=== PATIENT | female | born 1940 | race Caucasian/White ===

== ENCOUNTER → 2019-05-28 15:07 | Outpatient (BNVA) | payer MEDICARE, OTHER, SELFPAY | PROVIDERS: Family Provider Family Medicine; PCP Urology; Visit Provider Urology | DX: N30.20 Other chronic cystitis without hematuria (principal) | CPT/HCPCS: 87077; 87086; 87186 ==

== ENCOUNTER → 2019-12-05 12:47 | Outpatient (BNVA) | payer MEDICARE, OTHER, SELFPAY | PROVIDERS: Family Provider Family Medicine; PCP Family Medicine; Visit Provider Urology | DX: N30.20 Other chronic cystitis without hematuria (principal); N39.46 Mixed incontinence | CPT/HCPCS: 81001 ==

== ENCOUNTER 2020-02-19 13:05 | Outpatient (CLI) | payer MEDICARE, OTHER, SELFPAY ==
--- NOTE | 2020-02-19 13:30 | USCV_ITS ---
Head, Vale Age: 79 Gender: F : 1940 Exam Date: 02/19/2020 13:30 Ordering Phys: Anam You M.D ([email or web address]) Technologist: Elijah Quiñonez Exam Location: [facility] [place] Indication: MURMUR BP: 130 / 72 HR: 52 Rhythm: Sinus Technical Quality: Adequate MEASUREMENTS (Male / Female) Normal Values 2D ECHO LV Diastolic Diameter PLAX 4.6 cm 4.2 - 5.9 / 3.9 - 5.3 cm LV Systolic Diameter PLAX 2.9 cm IVS Diastolic Thickness 0.9 cm 0.6 - 1.0 / 0.6 - 0.9 cm IVS Systolic Thickness 1.4 cm LVPW Diastolic Thickness 1.3 cm 0.6 - 1.0 / 0.6 - 0.9 cm LVPW Systolic Thickness 1.5 cm LVOT Diameter 2.0 cm LV Ejection Fraction 2D Teich 67.2 % LV Ejection Fraction MOD 2C 71.6 % LV Ejection Fraction 2C AL 72.3 % LA Diameter 4.3 cm LA Width 5.3 cm LA Height 6.6 cm RA Width 3.7 cm RA Height 5.5 cm Aorta at Sinotubular Diameter 1.1 cm M-MODE LV Diastolic Diameter MM 5.3 cm 4.2 - 5.9 / 3.9 - 5.3 cm LV Systolic Diameter MM 3.7 cm LV Ejection Fraction MM Teich 57.6 % IVS Diastolic Thickness MM 1.0 cm 0.6 - 1.0 / 0.6 - 0.9 cm IVS Systolic Thickness MM 1.4 cm LVPW Diastolic Thickness MM 1.4 cm 0.6 - 1.0 / 0.6 - 0.9 cm LVPW Systolic Thickness MM 2.1 cm RV Diastolic Diameter MM 1.5 cm Aortic Annulus Diameter 3.3 cm LA Ao Ratio MM 1.4 MV E Point Septal Separation 0.6 cm DOPPLER AV Peak Velocity 156.3 cm/s LVOT Peak Velocity 111.0 cm/s AV Area Cont Eq vti 2.2 cm squared AV Area Cont Eq pk 2.3 cm squared MV Area PHT 5.0 cm squared Mitral E to A Ratio 1.5 MV E' Velocity 44.5 cm/s Mitral E to MV E' Ratio 9.8 Mitral E to LV E' Lateral Ratio 8.6 Mitral E to LV E' Septal Ratio 11.6 TR Peak Velocity 260.8 cm/s TR Peak Gradient 27.2 mmHg TV Peak E Velocity 73.0 cm/s Right Atrial Pressure 3.0 mmHg Pulmonary Artery Systolic Pressu 30.2 mmHg PV Peak Velocity 92.0 cm/s FINDINGS Left Ventricle Normal left ventricular size, systolic function and wall thickness, with no regional wall motion abnormalities. LVEF is 60 to 65%. Normal left ventricular wall thickness. Normal diastolic filling pattern. Right Ventricle The right ventricle is normal in size and function. Right Atrium The right atrium is normal in size. Left Atrium The left atrium is moderately enlarged. Mitral Valve Structurally normal mitral valve without significant stenosis or prolapse. There is mild to moderate mitral regurgitation. Aortic Valve Structurally normal aortic valve without significant sclerosis or stenosis. There is mild to moderate aortic regurgitation. Tricuspid Valve Structurally normal tricuspid valve without significant stenosis. There is mild tricuspid regurgitation. RVSP is 25 to 30 mmHg. Pulmonic Valve Structurally normal pulmonic valve without significant stenosis. There is trace pulmonic regurgitation. Pericardium Normal pericardium without effusion. Aorta Normal ascending aorta dimension. CONCLUSIONS Folic function is normal with EF of 60 to 65%. Diastolic function is normal. Mild to moderate mitral regurgitation, mild to moderate aortic regurgitation, mild tricuspid regurgitation is noted. There is no comparison study available. Anam You MD (Electronically Signed) Final Date: 01 March 2020 16:30 S
== END 2020-02-19 13:06 | disposition home or self-care (01) ==
LOC: US 13:06
PROVIDERS: PCP Family Medicine; Visit Provider Internal Medicine
DX: R01.1 Cardiac murmur, unspecified (principal); I34.0 Nonrheumatic mitral (valve) insufficiency; I07.1 Rheumatic tricuspid insufficiency; I35.1 Nonrheumatic aortic (valve) insufficiency
CPT/HCPCS: 93306

== ENCOUNTER → 2020-05-14 12:58 | Outpatient (BNVA) | payer MEDICARE, OTHER, SELFPAY | PROVIDERS: PCP Family Medicine; Visit Provider Urology | DX: N30.20 Other chronic cystitis without hematuria (principal); N39.46 Mixed incontinence | CPT/HCPCS: 81003 ==

== ENCOUNTER 2020-06-01 16:41 | Inpatient (IN) | payer MEDICARE, OTHER, SELFPAY ==
[2020-06-01 16:54] VITALS: BMI 27.0
--- NOTE | 2020-06-01 17:06 | PC.NURSE ---
Patient arrived to C[facility], DA from [facility] in [place]. Patient noted to be in a fib with RVR, HR 120s BP 100/75. Patient A&O. See physical assessment. Patient oriented to room and call light. Dr. Mix notified of patient's arrival and HR. No orders received at this time. Nurse to continue to monitor.
--- NOTE | 2020-06-01 17:51 | PC.NURSE ---
Physician at bedside.
[2020-06-01 18:06] VITALS: BP 100/75; PULSE 120; RESP 16; TEMP 36.7; O2SAT 96
--- NOTE | 2020-06-01 18:06 | P.HP_ITS ---
Providers/Chief Complaint Admitting Physician: Criselda Mix MD Primary Care Provider: Ryan Marcelino Chief Complaint: palpitations, dizziness History of Present Illness Vale Tripathi is a 80 year old female with PMHx noted below including paroxsysmal atrial fibrillation, presents as transfer from [facility] ER after having been found to be COVID-19 positive and with noted atrial fibrillation with RVR. She has initially presented there with c/o palpitations, dizziness/lightheadedness, seeing dark spots, nausea, for about 2 days. She reports following up with Dr. You and is on Flecanide as an antiarrhythmic and Eliquis for anticoagulation in addition to metoprolol; reports compliance with her medications. She is quite independent at baseline. She denies any shortness of breath, chest pain or discomfort, abdominal pain, changes in her urination or bowel habits, blood in her urine or stool. She has been trying to be very cautious, adhering to social distancing, mask wearing and proper hand hygiene so is quite surprised by the positive COVID-19 test. Work-up done at [facility] includes a normal CBC, normal electrolytes and renal function, baseline troponin of 14, BNP of 1984, magnesium of 1.4. Her last echo done in February of last year showed an ejection fraction of 60 to 65%. Chest x-ray is reported as unremarkable. She is currently on room air, vital signs are stable other than noted atrial fibrillation with RVR on manager monitoring. She received a bolus dose of Cardizem with some slowing in her heart rate prior to her arrival at our facility. Heart rates right now are ranging anywhere from 100 to the 160s and patient reports continued palpitations. She requires further management of A. fib with RVR and also requires isolation precautions at this time. Review of Systems Const: Reports: diaphoresis; Denies: fever(s), chills or change in appetite Eyes: Denies: change in vision ENMT: Reports: dry mouth Card: Reports: palpitations and pre-syncope; Denies: chest pain, swelling of feet/ankles, lightheadedness, syncope or dyspnea on exertion Resp: Denies: dyspnea, productive cough, non-productive cough or chest congestion GI: Denies: abdominal pain, nausea, vomiting, hematemesis or hematochezia : Denies: difficulty voiding, dysuria or hematuria Musc: Denies: back pain Skin/Breast: Denies: rash Neuro: Reports: weakness in extremities and dizziness; Denies: numbness in extremities Psych: Denies: anxiety Medications/Allergies Home Medications Medication Instructions Recorded Confirmed Last Taken Type levothyroxine 100 mcg capsule 100 mcg PO DAILY 07/20/19 06/01/20 06/01/20 08:00 History metoprolol succinate 50 mg 50 mg PO DAILY #90 tab 07/31/19 06/01/20 06/01/20 08:00 Rx tablet,extended release 24 hr flecainide 50 mg tablet 50 mg PO Q12H 90 Days #180 tab 09/07/19 06/01/20 06/01/20 08:00 Rx apixaban 5 mg tablet 5 mg PO BID 90 Days #180 tab 10/18/19 06/01/20 06/01/20 08:00 Rx pantoprazole 40 mg tablet,delayed 20 mg PO DAILY tab 12/05/19 06/01/20 06/01/20 08:00 History release famotidine 40 mg tablet 40 mg PO BID 01/23/20 06/01/20 06/01/20 08:00 History amlodipine 5 mg PO DAILY 06/01/20 06/01/20 06/01/20 08:00 History Allergies Allergy/AdvReac Type Severity Reaction Status Date / Time adhesive Allergy ALGY-Rash Verified 06/01/20 17:35 PFSH Acute PFSH: Medical History (Updated 06/01/20 @ 19:53 by Criselda Mix MD) Afib Anticoagulation adequate Eliquis Chronic cystitis GERD (gastroesophageal reflux disease) HTN (hypertension) Hypothyroidism Urinary incontinence, mixed Surgical History S/P cholecystectomy S/P hysterectomy S/P thyroidectomy Family History Father , AGE 78 Cancer COLON Other CAD (coronary artery disease) Social History Smoking and tobacco status: never smoked Alcohol intake: never Adopted: No Caregiver/support person: No Lives independently: No Marital status: / Current occupational status: retired Vitals/I&O/Wt Weight last 48 hrs Weight 69.173 kg Physical Exam Const: COMMON NORMALS: no acute distress, patient oriented x3 and alert GENERAL APPEARANCE: cooperative and comfortable ORIENTATION/CONSCIOUSNESS: Yes awake OTHER: -very pleasant, looks appropriate for age HENMT: COMMON NORMALS: normocephalic, atraumatic, hearing grossly normal bilaterally and moist oral mucous membranes HEAD & SCALP: normocephalic and atraumatic Eye: COMMON NORMALS: Equal, round and reactive pupils present, EOMs intact bilaterally and conjunctivae normal CONJUNCTIVA: Yes conjunctivae normal PUPIL: Yes Equal, round and reactive pupils present Neck/C-Spine: COMMON NORMALS: full ROM GENERAL: Yes normal visual inspection and Yes trachea midline Resp: COMMON NORMALS: normal respiratory effort, No retractions, No use of accessory muscles and clear to auscultation bilaterally EFFORT & INSPECTION: Yes able to speak in complete sentences, Yes symmetric chest movement and No tachypneic AUSCULTATION: clear to auscultation bilaterally OTHER: -on RA Cardio: COMMON NORMALS: S1 normal heart sound present, S2 normal heart sound present and No murmurs present (Cardio) RATE: tachycardic RHYTHM: abnormal rhythm (atrial fibrillation with RVR) irregularly irregular HEART SOUNDS: S1 normal heart sound present and S2 normal heart sound present GI: COMMON NORMALS: Normal to inspection, nondistended, normoactive bowel sounds present, Soft to palpation and non-tender PALPATION: Yes Soft to palpation Extremity: COMMON NORMALS: normal to inspection, full ROM and no clubbing, cyanosis or edema; negative for no pedal edema Neuro: COMMON NORMALS: patient oriented x3, moves all extremities, no focal motor deficits and no sensory deficits noted Psych: COMMON NORMALS: mental status grossly normal, Normal thought process present, cooperative, normal affect and speech normal SPEECH: Yes normal speech THOUGHT PROCESS: Normal thought process present Skin: COMMON NORMALS: no rashes or lesions noted, no jaundice, no petechiae and no mottling GENERAL SKIN EXAM: no rashes or lesions noted Data Other data: -Reviewed labs and imaging, ECG done at [facility] CBC: 6.3/13.4/41.1/224 BMP: 138/3.6/100/26/12/0.91 BNP-1983, baseline troponin-14, Mg-1.4, INR-1.3 rapid COVID-19 positive, influenza negative A&P Assessment and plan (1) Atrial fibrillation with RVR: -presented with symptomatic A.fib with RVR from [facility], specifically palpitations, pre-syncope, diaphoresis, nausea -received bolus dose of Cardizem with some improvement in HR but now back to A.f ib with RVR -start on cardizem drip, wean as tolerated -resume BB, [place] -Echo (02/2020): EF=60-65%, no RWMA, mild-moderate AR, mild-moderate MR, mild TR, trace AR -follows up with Dr. You -telemetry monitoring -likely triggered by COVID-19 infection, mild acute CHF exacerbation -K-3.6, Mg-1.4; keep K > 4, Mg > 2 Status: Acute (2) COVID-19 virus infection: -found to be COVID-19 positive per rapid testing -influenza negative -not overtly symptomatic, on RA, stable oxygen saturation, afebrile -check inflammatory markers -monitor respiratory status, supplemental oxygen and breathing treatments as needed -isolation precautions -zinc, vitamin C, IS Status: Acute (3) Acute exacerbation of CHF (congestive heart failure): -BNP-1983 -not overtly edematous, no evidence of fluid overload on CXR done at [facility] -give trial of diuresis -Echo as noted above -monitor Is & Os, daily weights -cardiac diet as tolerated Status: Acute Qualifiers: Heart failure type: diastolic Qualified Code(s): I50.33 - Acute on chronic diastolic (congestive) heart failure (4) HTN (hypertension): -normotensive, continue to monitor vital signs -resume antihypertensives Status: Chronic Qualifiers: Hypertension type: essential hypertension Qualified Code(s): I10 - Essential (primary) hypertension (5) Hypothyroidism: -check TSH -resume levothyroxine Status: Chronic Qualifiers: Hypothyroidism type: postoperative Qualified Code(s): E89.0 - Postprocedural hypothyroidism Additional A&P Information -up with assist -GI ppx with famotidine -DVT ppx not needed as on Eliquis -Dispo: home, very independent at baseline -Code status: FULL code -Admit to CSU with isolation Attestations Medical Necessity Statement*: Vale Olivares Head's hospital stay will be greater than 2 midnights for management of atrial fibrillation with RVR, COVID-19 infection. Time Spent in Patient Care: Greater than 35 minutes (>than 50% of time spent in counselling and/or direct pt care on unit) . Coding Level of Care Code Acute Cyber Incident Analyst for g Fwd Exam Comprehensive Diagnoses Atrial fibrillation with RVR I48.91 COVID-19 virus infection U07.1 Acute exacerbation of CHF (congestive heart failure) I50.33 Heart failure type: diastolic HTN (hypertension) I10 Hypertension type: essential hypertension Hypothyroidism E89.0 Hypothyroidism type: postoperative
[2020-06-01 18:15] VITALS: BP 131/66; PULSE 119
[2020-06-01] MEDS: FUROsemide 10 mg/mL SDV 2mL 20 MG IVP (18:42)
[2020-06-01] MEDS: magnesium sulfate premix 2 GM/50 ML PIGGYBACK IV (18:42)
[2020-06-01 18:46] VITALS: BP 124/67; PULSE 112
[2020-06-01 19:54] VITALS: PULSE 103; RESP 18; O2SAT 95
[2020-06-01 19:57] VITALS: PULSE 107
[2020-06-01 20:00] VITALS: BP 129/78; PULSE 107; PULSE 52; RESP 22; TEMP 36.8; O2SAT 96
[2020-06-02] VITALS (11 sets, daily range): BP systolic 98–139; BP diastolic 46–69; PULSE 49–70; RESP 14–21; TEMP 36.3–36.8; O2SAT 94–97; BMI 26.6
--- NOTE | 2020-06-02 02:54 | PC.NURSE ---
NURSE NOTE: PT CONVERTED TO SR. PT ON CARDIZEM GTT @ 10MG/HR AT START OF SHIFT. AT 2146, PT CONVERTED FROM AFIB TO SINUS RHYTHM/JESUS AT [address] SANTOS AT THAT TIME AND RECEIVED ORDERS TO HOLD CARD GTT. PT ALERT AND ORIENTED X4, MOVES ALL EXREMITIES AND FOLLOWS ALL COMMANDS. ALL VS AND ASSESSMENTS CHARTED. NO C/O PAIN, DISCOMFORT OR DIZZINESS. CURRENTLY RESTING WITH EYES CLOSED. NO DISTRESS NOTED. WILL CONTINUE TO MONITOR.
[2020-06-02 04:23] LABS: Eosinophils % 0.2 %; Hematocrit 38.7 % (37.0-47.0); Hemoglobin 12.5 g/dL (11.5-15.3); Lymphocytes % 48.9 %; Mean Corpuscular HGB Conc 32.3 g/dL (30.0-36.0); Mean Corpuscular Hemoglobin 28.3 pg (28.0-34.0); Mean Corpuscular Volume 87.6 fL (81-99); Mean Platelet Volume 10.9 fL (7.4-10.4); Monocytes # 0.4 10^3/uL (0.2-0.9); Neutrophils # 1.64 10^3/uL (1.8-7.7); Neutrophils % 40.9 %; Nucleated Red Blood Cells % 0 %; Platelet Count 195 10^3/cmm (130-400); Red Blood Count 4.42 10^6/uL (4.1-5.3); Red Cell Distribution Width 14.4 % (12.1-15.1)
[2020-06-02 04:44] LABS: Fibrinogen 288 mg/dL (174-498)
[2020-06-02 04:47] LABS: D Dimer <= 0.27 ug/mIFEU (0-0.59)
--- NOTE | 2020-06-02 05:10 | PC.NURSE ---
NURSE NOTE: LAB LAB CALLED AT THIS TIME. STATED WERE CANCELLING LAB D/T LAB TUBES SENT WERE HEMOLYZED. TO SEND ALGOLOGY TEACHER TO DRAW MORNING LABS.
[2020-06-02 06:31] LABS: Procalcitonin 0.06 ng/mL (0-0.5); Thyroid Stimulating Hormone 0.72 uIU/mL (0.27-4.20)
[2020-06-02 06:44] LABS: Alanine Aminotransferase 12 U/L (0-33); Albumin Level 3.8 g/dL (3.5-5.2); Alkaline Phosphatase 58 IU/L (35-105); Anion Gap 14.6 (5-19); Aspartate Amino Transferase 18 U/L (0-32); Blood Urea Nitrogen 15 mg/dL (8-23); C Reactive Protein 6.3 mg/L (0.0-4.9); Calcium 8.6 mg/dL (8.5-10.5); Carbon Dioxide 26 mmol/L (22-29); Chloride 101 mmol/L (98-107); Creatine Phosphokinase 102 U/L (26-192); Ferritin 46 ng/mL (15-150); Globulin 2.5 g/dL (1.3-4.6); Glucose 86 mg/dL (65-115); Lactate Dehydrogenase 187 U/L (135-214); Magnesium 2.4 mg/dL (1.7-2.3); Osmolality Calculated 286 mOsm/kg (285-295); Potassium 3.6 mmol/L (3.5-5.1); Sodium 138 mmol/L (136-145); Total Bilirubin 0.3 mg/dL (0.15-1.2); Total Protein 6.3 g/dL (6.6-8.7)
[2020-06-02 06:54] LABS: NT Pro B Type Natriuretic Pept 3189 pg/mL (0-450)
--- NOTE | 2020-06-02 08:40 | P.PN_ITS ---
Subjective Subjective: Interval history: Converted to NSR overnight, off cardizem drip. Had some intermittent bradycardia, on RA, afebrile. Inflammatory markers wnl. Remains on isolation precautions due to COVID-19. No complaints, encouraged to try and get up and ambulate with portable tele to monitor HR. Medications: Reviewed: Yes Medication Review Details: Active Medications Generic Name Dose Route Start Last Admin Trade Name Freq PRN Reason Stop Dose Admin Acetaminophen 650 mg 06/01/20 18:06 Acetaminophen 32 5 Mg Tablet PO Q6H PRN Mild/Mod Pain Or Temp >/= 101 Albuterol Sulfate 2 puff 06/01/20 18:09 Albuterol 8 Gm M di INHALATION Q4H.RESPIRATORY P RN SHORTNESS OF KANE TH Amlodipine Besylat e 5 mg 06/02/20 09:00 Amlodipine 5 Mg Tablet PO DAILY CHENCHO Apixaban 5 mg 06/02/20 09:00 Apixaban 5 Mg Ta blet PO BID CHENCHO Ascorbic Acid 500 mg 06/02/20 09:00 Ascorbic Acid 50 0 Mg Tablet PO DAILY CHENCHO Famotidine 40 mg 06/02/20 09:00 Famotidine 20 Mg Tablet PO BID CHENCHO Flecainide Acetate 50 mg 06/02/20 09:00 Flecainide 100 M g Tablet PO Q12H CHENCHO Levothyroxine Sodi um 100 mcg 06/02/20 09:00 Levothyroxine 10 0 Mcg Tablet PO DAILY CHENCHO Metoprolol Succina te 50 mg 06/02/20 09:00 Metoprolol Succi alberto Er (24 Hr) 50 Mg Tablet PO DAILY [facility] Morphine Sulfate 2 mg 06/01/20 18:06 Morphine 4 Mg/Ml Sdv 1 Ml IVP Q4H PRN SEVERE PAIN Ondansetron HCl 4 mg 06/01/20 18:06 Ondansetron 2 Mg /Ml Sdv 2 Ml IVP Q8H PRN vomiting, or N/V if npo Potassium Chloride 40 meq 06/02/20 09:00 Potassium Chlori de Er 10 Meq Table t PO DAILY CHENCHO Zinc Gluconate 50 mg 06/02/20 09:00 Zinc Gluconate 5 0 Mg Tablet PO DAILY CHENCHO adhesive Allergy (Verified 06/01/20 17:35) ALGY-Rash Vitals/I&O/Wt Last Vital Signs Temp 97.5 F L 06/02/20 07:40 Pulse 50 L 06/02/20 07:40 Resp 16 06/02/20 07:40 BP 107/50 06/02/20 07:40 Pulse Ox 97 06/02/20 07:40 06/01/20 06/02/20 06/02/20 22:59 06:59 14:59 Intake Total 50.917 / 50.917 124.083 / 175.000 Output Total 800 / 800 250 / 1050 Balance -749.083 / -749.083 -125.917 / -875.000 Weight last 48 hrs Weight 68.067 kg Weight 69.173 kg Physical Exam 2 Const: COMMON NORMALS: no acute distress, patient oriented x3 and alert GENERAL APPEARANCE: cooperative and comfortable ORIENTATION/CONSCIOUSNESS: Yes awake OTHER: -very pleasant, looks appropriate for age HENMT: COMMON NORMALS: normocephalic, atraumatic, hearing grossly normal bilaterally and moist oral mucous membranes HEAD & SCALP: normocephalic and atraumatic Eye: COMMON NORMALS: Equal, round and reactive pupils present, EOMs intact bilaterally and conjunctivae normal CONJUNCTIVA: Yes conjunctivae normal PUPIL: Yes Equal, round and reactive pupils present Neck/C-Spine: COMMON NORMALS: full ROM GENERAL: Yes normal visual inspection and Yes trachea midline Resp: COMMON NORMALS: normal respiratory effort, No retractions, No use of accessory muscles and clear to auscultation bilaterally EFFORT & INSPECTION: Yes able to speak in complete sentences, Yes symmetric chest movement and No tachypneic AUSCULTATION: clear to auscultation bilaterally OTHER: -on RA Cardio: COMMON NORMALS: regular rate, regular rhythm, S1 normal heart sound present, S2 normal heart sound present and No murmurs present (Cardio) RATE: regular rate and bradycardic (intermittently) RHYTHM: regular rhythm HEART SOUNDS: S1 normal heart sound present and S2 normal heart sound present OTHER : -seems to alternate between tachycardia and bradycardia GI: COMMON NORMALS: Normal to inspection, nondistended, normoactive bowel sounds present, Soft to palpation and non-tender PALPATION: Yes Soft to palpation Extremity: COMMON NORMALS: normal to inspection, full ROM and no clubbing, cyanosis or edema; negative for no pedal edema Neuro: COMMON NORMALS: patient oriented x3, moves all extremities, no focal motor deficits and no sensory deficits noted SENSORIUM/ORIENTATION: Yes alert Psych: COMMON NORMALS: mental status grossly normal, Normal thought process present, cooperative, normal affect and speech normal SPEECH: Yes normal speech THOUGHT PROCESS: Normal thought process present Skin: COMMON NORMALS: no rashes or lesions noted, no jaundice, no petechiae and no mottling GENERAL SKIN EXAM: no rashes or lesions noted Data : 06/02/20 03:55 06/02/20 05:42 A&P Assessment and plan (1) Atrial fibrillation with RVR: -presented with symptomatic A.fib with RVR from [facility], specifically palpitations, pre-syncope, diaphoresis, nausea -received bolus dose of Cardizem with some improvement in HR but now back to A.fib with RVR -weaned off cardizem drip overnight after converting to NSR -continue BB, Eliquis -Echo (02/2020): EF=60-65%, no RWMA, mild-moderate AR, mild-moderate MR, mild TR, trace IN -follows up with Dr. You -telemetry monitoring -likely triggered by COVID-19 infection, mild acute CHF exacerbation -K-3.6, Mg-2.4; keep K > 4, Mg > 2 Status: Acute (2) COVID-19 virus infection: -found to be COVID-19 positive per rapid testing -influenza negative -not overtly symptomatic, on RA, stable oxygen saturation, afebrile -normal inflammatory markers -continue to monitor respiratory status, supplemental oxygen and breathing treatments as needed -isolation precautions -zinc, vitamin C, IS Status: Acute (3) Acute exacerbation of CHF (congestive heart failure): -BNP-3189 -not overtly edematous, no evidence of fluid overload on CXR done at [facility] -give trial of diuresis -Echo as noted above -continue to monitor Is & Os, daily weights -cardiac diet as tolerated Status: Acute Qualifiers: Heart failure type: diastolic Qualified Code(s): I50.33 - Acute on chronic diastolic (congestive) heart failure (4) HTN (hypertension): -normotensive, continue to monitor vital signs -continue antihypertensives Status: Chronic Qualifiers: Hypertension type: essential hypertension Qualified Code(s): I10 - Essential (primary) hypertension (5) Hypothyroidism: -TSH wnl -continue levothyroxine Status: Chronic Qualifiers: Hypothyroidism type: postoperative Qualified Code(s): E89.0 - Postprocedural hypothyroidism Additional A&P Information -up with assist -GI ppx with famotidine -DVT ppx not needed as on Eliquis -Dispo: home, very independent at baseline -Code status: FULL code Attestations Medical Necessity Statement*: Patient requires hospitalization for continued optimization of medications for atrial fibrillation. Time Spent in Patient Care: 16 - 35 minutes (>than 50% of time spent in counselling and/or direct pt care on unit) . Coding Level of Care Code Acute Phlebotomy Technologist for Chg Fwd Exam Comprehensive Diagnoses Atrial fibrillation with RVR I48.91 COVID-19 virus infection U07.1 Acute exacerbation of CHF (congestive heart failure) I50.33 Heart failure type: diastolic HTN (hypertension) I10 Hypertension type: essential hypertension Hypothyroidism E89.0 Hypothyroidism type: postoperative
[2020-06-02] MEDS: potassium chloride ER 10 mEq Tablet 40 MEQ PO (09:05)
[2020-06-02] MEDS: ascorbic acid 500 mg Tablet PO (09:06)
[2020-06-02] MEDS: levothyroxine 100 mcg Tablet PO (09:06)
[2020-06-02] MEDS: zinc gluconate 50 mg Tablet PO (09:06)
[2020-06-02] MEDS: famotidine 20 mg Tablet 40 MG PO ×2 (09:06→18:05)
--- NOTE | 2020-06-02 09:16 | PC.CHAP ---
Pastoral Care Encounter/Spiritual Assessment Type of Contact [] Declined overhead crane truck loader visit [] Patient/Family/Request visit [] Outpatient visit [] Follow-up visit [] Physician referral [] Code/Alert [] Routine visit [] Staff referral [] Actively dying [] Patient sleeping [] Family support [] [] Out of room [] Palliative care [] [] Receiving care in room [] Pre-surgical visit [] Trauma [] Long length of stay [] ICU visit [x] Other: isolated Relational/Emotional Strength [] Patient feels connected with others/family/visitors/staff [] Distress [] Loneliness/isolation [] Abandonment Spirituality of Patient [] Person of Sherry [] Attends Restoration of their Sherry [] Believes in Prayer [] Reads Bible or Anglican materials [] There are Spiritual issues to be addressed Atmospheric Physics Professor Interventions [x] Prayer [] Active listening [] Non-anxious presence [] Spiritual/emotional support [] Crisis/trauma care [] Spiritual counseling [] Bereavement support [] Provided bereavement packet [] Provided Bible/devotional materials [] Provided toy/stuffed animal, coloring book to patient or family member [] Provided Communion [] Anointing/[place] [] Salvation [x] Completed spiritual assessment [] Other: Impact on Illness or Injury [] Angry [] Fearful [] Anxious [] Often cries [] Exhaustion [] Unable to work [] Unable to attend anabaptism [] Unable to walk/stand [] Unable to read [] Unable to drive [] Unable to eat/drink [] Unable to sleep [] Unable to be with family [] Patient intubated [] Other: Summary Time spent with patient
[2020-06-02] MEDS: apixaban 5 mg Tablet PO ×2 (09:47→18:05)
[2020-06-02] MEDS: flecainide 100 mg Tablet 50 MG PO ×2 (09:47→21:06)
[2020-06-03] VITALS (8 sets, daily range): BP systolic 132–145; BP diastolic 56–72; PULSE 52–72; RESP 14–22; TEMP 36.6–36.8; O2SAT 92–98
--- NOTE | 2020-06-03 04:20 | PC.NURSE ---
NURSE NOTE: SHIFT SUMMARY: PT ALERT AND ORIENTED X4. MOVES ALL EXTREMITIES AND FOLLOWS COMMANDS. DENIES PAIN THIS SHIFT. RESTING WITH EYES CLOSED, RESP EVEN AND NON LABORED. NIGHT UNEVENTFUL. ALL VS AND ASSESSMENTS CHARTED. WILL CONTINUE TO MONITOR.
[2020-06-03] MEDS: amlodipine 5 mg Tablet PO (08:36)
[2020-06-03] MEDS: potassium chloride ER 10 mEq Tablet 40 MEQ PO (08:36)
[2020-06-03] MEDS: levothyroxine 100 mcg Tablet PO (08:36)
[2020-06-03] MEDS: flecainide 100 mg Tablet 50 MG PO (08:39)
[2020-06-03] MEDS: apixaban 5 mg Tablet PO ×2 (08:40→17:54)
[2020-06-03] MEDS: metoprolol succinate ER (24 HR) 50 mg Tablet PO (08:40)
[2020-06-03] MEDS: zinc gluconate 50 mg Tablet PO (08:40)
[2020-06-03] MEDS: ascorbic acid 500 mg Tablet PO (08:40)
[2020-06-03] MEDS: famotidine 20 mg Tablet 40 MG PO (11:47)
--- NOTE | 2020-06-03 15:40 | P.DS_ITS ---
Discharge Providers Date of Admission: 06/01/20 16:41 Date of Discharge: June 03, 2020 Attending Provider at Admission: Criselda Mix MD Attending Provider at Discharge: Criselda Mix MD Consults: None Primary Care Provider: Ryan Marcelino Diagnoses at Discharge Discharge Diagnosis (1) Atrial fibrillation with RVR: Status: Acute (2) COVID-19 virus infection: Status: Acute (3) Acute exacerbation of CHF (congestive heart failure): Status: Acute Qualifiers: Heart failure type: diastolic Qualified Code(s): I50.33 - Acute on chronic diastolic (congestive) heart failure (4) HTN (hypertension): Status: Chronic Qualifiers: Hypertension type: essential hypertension Qualified Code(s): I10 - Essential (primary) hypertension (5) Hypothyroidism: Status: Chronic Qualifiers: Hypothyroidism type: postoperative Qualified Code(s): E89.0 - P ostprocedural hypothyroidism Reason for Visit Reason for Visit: palpitations, dizziness Hospital Course Hospital Course Patient was admitted as a transfer from [facility] after having been found to have A. fib with RVR. She did require Cardizem drip initially and subsequently converted to sinus rhythm. She has had some noted bradycardia but has mostly maintained sinus rhythm and has had some noted brief periods of atrial flutter on telemetry. She has been on anticoagulation with Eliquis which she was already on and she has been maintained on her flecainide and metoprolol. She was also found to be positive for COVID-19 and was maintained on isolation precautions. Inflammatory markers have been within normal limits except for very mild CRP elevation. Respiratory status has been stable and she has not required supplemental oxygen. 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 I have discussed this with her manager union Dr. You and plan will be for a 30-day event monitor. [facility] will contact her when she can return to be fitted for the event monitor. In the interim she is cautioned to continue to monitor her symptoms as well as her vital signs at home and to seek medical attention immediately should she have recurrent symptoms. She is to follow-up with a primary care physician within [address] You in 1 month. Physical Exam Const: COMMON NORMALS: no acute distress, patient oriented x3 and alert GENERAL APPEARANCE: cooperative and comfortable ORIENTATION/CONSCIOUSNESS: Yes awake OTHER: -very pleasant, looks appropriate for age HENMT: COMMON NORMALS: normocephalic, atraumatic, hearing grossly normal bilaterally and moist oral mucous membranes HEAD & SCALP: normocephalic and atraumatic Eye: COMMON NORMALS: Equal, round and reactive pupils present, EOMs intact bilaterally and conjunctivae normal CONJUNCTIVA: Yes conjunctivae normal PUPIL: Yes Equal, round and reactive pupils present Neck/C-Spine: COMMON NORMALS: full ROM GENERAL: Yes normal visual inspection and Yes trachea midline Resp: COMMON NORMALS: normal respiratory effort, No retractions, No use of accessory muscles and clear to auscultation bilaterally EFFORT & INSPECTION: Yes able to speak in complete sentences, Yes symmetric chest movement and No tachypneic AUSCULTATION: clear to auscultation bilaterally OTHER: -on RA Cardio: COMMON NORMALS: regular rate, regular rhythm, S1 normal heart sound present, S2 normal heart sound present and No murmurs present (Cardio) RATE: regular rate and bradycardic (intermittently) RHYTHM: regular rhythm HEART SOUNDS: S1 normal heart sound present and S2 normal heart sound present OTHER: -seems to alternate between tachycardia and bradycardia GI: COMMON NORMALS: Normal to inspection, nondistended, normoactive bowel sounds present, Soft to palpation and non-tender PALPATION: Yes Soft to palpation Extremity: COMMON NORMALS: normal to inspection, full ROM and no clubbing, cyanosis or edema; negative for no pedal edema Neuro: COMMON NORMALS: patient oriented x3, moves all extremities, no focal motor deficits and no sensory deficits noted SENSORIUM/ORIENTATION: Yes alert Psych: COMMON NORMALS: mental status grossly normal, Normal thought process present, cooperative, normal affect and speech normal SPEECH: Yes normal speech THOUGHT PROCESS: Normal thought process present Skin: COMMON NORMALS: no rashes or lesions noted, no jaundice, no petechiae and no mottling GENERAL SKIN EXAM: no rashes or lesions noted Discharge Data Vitals: Last Vital Signs Temp 98.2 F 06/03/20 04:00 Pulse 67 06/03/20 08:43 Resp 17 06/03/20 08:43 BP 145/72 06/03/20 08:00 Pulse Ox 98 06/03/20 08:43 Discharge Plan Discharge Patient Disposition: Home Condition: Stable Prescriptions: New Vitamin C 500 mg Tablet 500 mg PO DAILY Qty: 30 RF: 0 zinc gluconate 50 mg Tablet 50 mg PO DAILY Qty: 30 RF: 0 Continued levothyroxine 100 mcg capsule 100 mcg PO DAILY RF: 0 pantoprazole 40 mg tablet,delayed release (DR/EC) 20 mg PO DAILY RF: 0 metoprolol succinate 50 mg tablet extended release 24 hr 50 mg PO DAILY 30 Days Qty: 30 RF: 3 flecainide 50 mg tablet 50 mg PO Q12H 30 Days Qty: 60 RF: 0 Eliquis 5 mg tablet 5 mg PO BID 90 Days Qty: 180 RF: 3 Changed amlodipine 5 mg tablet 5 mg PO DAILY 30 Days Qty: 30 RF: 0 Discontinued famotidine 40 mg tablet 40 mg PO BID RF: 0 Discharge Orders: Discharge Order (Routine); Ordered 06/03/20 Ordered By: Criselda Mix Other Ambulatory Orders: [place] cardiac event monitor (Routine) Timeframe: [id number] Facility: [facility] - Location: Cardiac Diagnostic Laboratory Ordered By: Criselda Mix Referrals: Anam You M.D [Physician] - 1 month (Follow up on event monitor) Ryan Marcelino [Primary Care Provider] - 4-7 days Discharge Diet: Advance as tolerated and Cardiac Discharge Activity: Increase activity as tolerated Activity Restrictions/Additional Instructions: -Please continue to self isolate for an additional 7 days including maintaining social distancing, mask wearing and practising proper hand hygiene due to COVID- 19 infection Discharge Attestations Time Spent in Discharge Care*: greater than 30 min Specific Discharge Activities: educating patient, educating and/or supporting family/caregiver, discussing with pcp/other providers (cardiology), documenting/other paperwork and evaluating patient/reviewing data Status at Discharge: Cognitive status at discharge: cognitively intact , Behavioral status at discharge: cooperative and independent in ADL's , Functional status at discharge: independent ambulation Overall status at discharge: patient is progressing back to baseline Quality Metrics Clinical Quality Measures During this hospital stay, did patient experience: None Coding Level of Care Code Acute Email Manager for Edmond Fwd Diagnoses Atrial fibrillation with RVR I48.91 COVID-19 virus infection U07.1 Acute exacerbation of CHF (congestive heart failure) I50.33 Heart failure type: diastolic HTN (hypertension) I10 Hypertension type: essential hypertension Hypothyroidism E89.0 Hypothyroidism type: postoperative
--- NOTE | 2020-06-03 17:11 | PC.CHAP ---
Pastoral Care Encounter/Spiritual Assessment Type of Contact [] Declined biology lecturer visit [] Patient/Family/Request visit [] Outpatient visit [] Follow-up visit [] Physician referral [] Code/Alert [] Routine visit [] Staff referral [] Actively dying [] Patient sleeping [] Family support [] [] Out of room [] Palliative care [] [] Receiving care in room [] Pre-surgical visit [] Trauma [] Long length of stay [] ICU visit [] Other: Relational/Emotional Strength [] Patient feels connected with others/family/visitors/staff [] Distress [] Loneliness/isolation [] Abandonment Spirituality of Patient [] Person of Sherry [] Attends Holiness of their Sherry [] Believes in Prayer [] Reads Bible or Zoroastrianism materials [] There are Spiritual issues to be addressed Manager Statistical Programming Interventions [] Prayer [] Active listening [] Non-anxious presence [] Spiritual/emotional support [] Crisis/trauma care [] Spiritual counseling [] Bereavement support [] Provided bereavement packet [] Provided Bible/devotional materials [] Provided toy/stuffed animal, coloring book to patient or family member [] Provided Communion [] Anointing/[place] [] Salvation [] Completed spiritual assessment [] Other: Impact on Illness or Injury [] Angry [] Fearful [] Anxious [] Often cries [] Exhaustion [] Unable to work [] Unable to attend rastafarian [] Unable to walk/stand [] Unable to read [] Unable to drive [] Unable to eat/drink [] Unable to sleep [] Unable to be with family [] Patient intubated [] Other: Summary I spoke with a nurse regarding the sign on the door of a droplet precaution, & she advised NOT entering. So, I did not go in. Time spent with patient 0
--- NOTE | 2020-06-03 17:31 | PC.NURSE ---
called [facility] Per pt Zinc is usually not available. Informed her that she can get her zinc her in [facility] [place] [facility] via med to bed. She is okay for me to call. Pt stated she still has vitamin c at home.
--- NOTE | 2020-06-03 19:32 | PC.NURSE ---
Discharge to home Instructed pt to follow-up with her pcp and turntable engineer as discuss. Educated pt on her 2 new meds, to continue her other home meds as well as norvasc and stopped the pepcid. Pt verbalizes understanding. Discharge packet provided. Informed pt to call [facility] and let them know she is discharge from the hospital for follow-up on her covid. Pt stated they have called her before. I also left a voicemail and let them know of her discharge to home today. Ushered pt via wheelchair with security with us.
== END 2020-06-03 19:32 | disposition home or self-care (01) | DRG 308 ==
PROVIDERS: Admitting Provider Family Medicine; PCP Family Medicine; Visit Provider Family Medicine
DX: I48.0 Paroxysmal atrial fibrillation (principal); U07.1 COVID-19; I50.33 Acute on chronic diastolic (congestive) heart failure; I11.0 Hypertensive heart disease with heart failure; Z79.01 Long term (current) use of anticoagulants; R00.1 Bradycardia, unspecified; M06.9 Rheumatoid arthritis, unspecified; E89.0 Postprocedural hypothyroidism; K21.9 Gastro-esophageal reflux disease without esophagitis
CPT/HCPCS: 12345; 36415; 80053; 82550; 82728; 83615; 83735; 83880; 84145; 84443; 85025; 85378; 85384; 86140; J1940; J3475; J3490; J3535

== ENCOUNTER 2020-09-08 14:11 | Outpatient (CLI) | payer MEDICARE, SELFPAY ==
--- NOTE | 2020-09-08 14:17 | MM_ITS ---
WS: [id number] BILATERAL DIGITAL SCREENING MAMMOGRAPHY WITH CAD CLINICAL INFORMATION: SCREENING HISTORY: Screening mammogram. No current complaints. COMPARISON: TECHNIQUE: Bilateral CC and MLO views. FINDINGS: Scattered fibroglandular densities bilaterally. No suspicious focal mass, asymmetry, calcifications, or architectural distortion. No evidence of malignancy. Vascular calcification. MM/[place] [id number] IMPRESSION: BI-RADS: 2-Benign FOLLOW UP: 1 Year Follow-up Recommend return to annual screening mammography.
== END 2020-09-08 14:12 | disposition home or self-care (01) ==
LOC: RADSHAW 14:12
PROVIDERS: PCP Family Medicine; Visit Provider Family Medicine
DX: Z12.31 Encounter for screening mammogram for malignant neoplasm of breast (principal)
CPT/HCPCS: 77067

== ENCOUNTER → 2021-05-13 12:44 | Outpatient (BNVA) | payer MEDICARE, SELFPAY | PROVIDERS: PCP Family Medicine; Visit Provider Urology | DX: N39.46 Mixed incontinence (principal); N30.20 Other chronic cystitis without hematuria | CPT/HCPCS: 81003 ==

== ENCOUNTER → 2021-08-13 14:48 | Outpatient (BNVA) | payer MEDICARE, SELFPAY | PROVIDERS: PCP Family Medicine; Visit Provider Internal Medicine | DX: Z09 Encounter for follow-up examination after completed treatment for conditions other than malignant neoplasm (principal); I48.91 Unspecified atrial fibrillation; I10 Essential (primary) hypertension | CPT/HCPCS: 99213 ==

== ENCOUNTER 2021-12-28 12:03 | Outpatient (CLI) | payer MEDICARE, SELFPAY ==
--- NOTE | 2021-12-28 12:13 | MM_ITS ---
WS: [id number] BILATERAL 3D TOMOSYNTHESIS DIGITAL SCREENING MAMMOGRAPHY WITH CAD CLINICAL INFORMATION: SCREENING HISTORY: Screening mammogram. Pain and soreness LEFT breast COMPARISON: September 08, 2020 TECHNIQUE: Bilateral CC and MLO views. FINDINGS: Scattered fibroglandular densities bilaterally. Vascular calcification. No suspicious focal mass, asy mmetry, calcifications, or architectural distortion. No evidence of malignancy. MM/[place] [id number] IMPRESSION: BI-RADS: 2-Benign FOLLOW UP: 1 Year Follow-up Recommend return to annual screening mammography.
== END 2021-12-28 12:04 | disposition home or self-care (01) ==
LOC: RAD 12:04
PROVIDERS: PCP Family Medicine; Visit Provider Family Medicine
DX: Z12.31 Encounter for screening mammogram for malignant neoplasm of breast (principal)
CPT/HCPCS: 77063; 77067

== ENCOUNTER → 2022-02-11 13:48 | Outpatient (BNVA) | payer MEDICARE, SELFPAY | PROVIDERS: PCP Family Medicine; Visit Provider Internal Medicine | DX: I48.91 Unspecified atrial fibrillation (principal); I10 Essential (primary) hypertension; R55 Syncope and collapse; Z79.01 Long term (current) use of anticoagulants | CPT/HCPCS: 99214 ==

== ENCOUNTER 2022-04-19 14:14 | Outpatient (CLI) | payer MEDICARE, SELFPAY ==
--- NOTE | 2022-04-19 14:30 | USCV_ITS ---
Vale Tripathi Age: 82 Gender: F : 1940 Exam Date: 04/19/2022 14:54 Ordering Phys: Anam You M.D ([email or web address]) Technologist: Exam Location: [facility] Indication: murmur BP: 130 / 89 HR: 45 Rhythm: Sinus Technical Quality: Adequate MEASUREMENTS (Male / Female) Normal Values 2D ECHO LV Diastolic Diameter PLAX 4.5 cm 4.2 - 5.9 / 3.9 - 5.3 cm LV Systolic Diameter PLAX 2.9 cm IVS Diastolic Thickness 0.9 cm 0.6 - 1.0 / 0.6 - 0.9 cm IVS Systolic Thickness 1.3 cm LVPW Diastolic Thickness 1.1 cm 0.6 - 1.0 / 0.6 - 0.9 cm LVPW Systolic Thickness 1.2 cm LVOT Diameter 1.9 cm LV Ejection Fraction 2D Teich 69.3 % LV Ejection Fraction MOD 2C 65.7 % LV Ejection Fraction 2C AL 64.4 % LA Diameter 3.8 cm IVC Diameter 1.7 cm M-MODE Aortic Annulus Diameter 3.1 cm LA Ao Ratio MM 1.3 MV E Point Septal Separation 0.7 cm DOPPLER AV Peak Velocity 127.3 cm/s LVOT Peak Velocity 98.0 cm/s AV Area Cont Eq vti 2.4 cm squared AV Area Cont Eq pk 2.2 cm squared MV Area PHT 5.0 cm squared Mitral E to A Ratio 1.2 MV E' Velocity 58.5 cm/s Mitral E to MV E' Ratio 10.0 Mitral E to LV E' Lateral Ratio 9.2 Mitral E to LV E' Septal Ratio 10.9 TR Peak Velocity 306.3 cm/s TR Peak Gradient 37.5 mmHg TV Peak E Velocity 111.0 cm/s Right Atrial Pressure 3.0 mmHg Pulmonary Artery Systolic Pressu 40.5 mmHg RV Acceleration Time 0.2 s FINDINGS Left Ventricle Left ventricle is normal in size. LV systolic function is normal with EF 55 to 60%. No regional wall motion abnormalities are seen Right Ventricle Normal in size and function Right Atrium Normal in size Left Atrium Normal in size Mitral Valve Structurally normal mitral valve. Moderate mitral regurgitation. Aortic Valve Structurally normal aortic valve. Mild to moderate aortic regurgitation. No significant stenosis Tricuspid Valve Mild tricuspid regurgitation. RVSP is 40-45mmHg. This is consistent with mild pulmonary hypertension Pulmonic Valve Not well visualized Pericardium Normal Aorta Normal in size IVC Not well visualized CONCLUSIONS LV systolic function is normal with EF of 55 to 60%. Moderate mitral regurgitation Mild to moderate aortic regurgitation Mild tricuspid regurgitation Mild pulmonary hypertension Compared to prior echocardiogram from 02/19/2020, no significant changes are seen. Anam You MD (Electronically Signed) Final Date: 04 May 2022 09:02 S
== END 2022-04-19 14:15 | disposition home or self-care (01) ==
LOC: RAD 14:16
PROVIDERS: PCP Family Medicine; Visit Provider Internal Medicine
DX: I08.3 Combined rheumatic disorders of mitral, aortic and tricuspid valves (principal); R06.02 Shortness of breath
CPT/HCPCS: 93306

== ENCOUNTER → 2022-08-12 15:35 | Outpatient (BNVA) | payer MEDICARE, SELFPAY | PROVIDERS: PCP Family Medicine; Visit Provider Internal Medicine | DX: I48.91 Unspecified atrial fibrillation (principal); I10 Essential (primary) hypertension; R55 Syncope and collapse; Z79.01 Long term (current) use of anticoagulants | CPT/HCPCS: 99214 ==

== ENCOUNTER → 2022-11-18 09:36 | Outpatient (BNVA) | payer MEDICARE, SELFPAY | PROVIDERS: PCP Family Medicine; Visit Provider Urology | DX: N30.20 Other chronic cystitis without hematuria (principal) | CPT/HCPCS: 51798; 87086; 99213 ==

== ENCOUNTER 2023-02-01 11:10 | Outpatient (CLI) | payer MEDICARE, SELFPAY ==
--- NOTE | 2023-02-01 11:16 | MM_ITS ---
WS: [id number] BILATERAL 3D TOMOSYNTHESIS DIGITAL SCREENING MAMMOGRAPHY WITH CAD CLINICAL INFORMATION: SCREENING HISTORY: Screening mammogram. No current complaints. COMPARISON: 2021 TECHNIQUE: Bilateral CC and MLO views. FINDINGS: Scattered fibroglandular densities bilaterally. No suspicious focal mass, asymmetry, calcifications, or architectural distortion. No evidence of malignancy. Vascular calcification. IMPRESSION: MM/[place] [id number] BI-RADS: 2-Benign FOLLOW UP: 1 Year Follow-up Recommend return to annual screening mammography.
== END 2023-02-01 11:11 | disposition home or self-care (01) ==
PROVIDERS: PCP Family Medicine; Visit Provider Family Medicine
DX: Z12.31 Encounter for screening mammogram for malignant neoplasm of breast (principal)
CPT/HCPCS: 77063; 77067

== ENCOUNTER → 2023-03-16 13:57 | Outpatient (BNVA) | payer MEDICARE, SELFPAY | PROVIDERS: PCP Family Medicine; Visit Provider Internal Medicine | DX: I48.91 Unspecified atrial fibrillation (principal); I10 Essential (primary) hypertension; R55 Syncope and collapse; Z79.01 Long term (current) use of anticoagulants | CPT/HCPCS: 99214 ==

== ENCOUNTER → 2023-04-25 12:50 | Outpatient (BNVA) | payer MEDICARE, SELFPAY | PROVIDERS: PCP Family Medicine; Visit Provider Nurse Practitioner Family | DX: I48.0 Paroxysmal atrial fibrillation (principal); Z79.01 Long term (current) use of anticoagulants | CPT/HCPCS: 99214 ==

== ENCOUNTER 2023-07-28 13:44 | Outpatient (CLI) | payer MEDICARE, SELFPAY ==
--- NOTE | 2023-07-28 14:15 | USCV_ITS ---
Vale Tripathi Age: 83 Gender: F : 1940 Exam Date: 07/28/2023 13:56 Ordering Phys: Anam You M.D ([email or web address]) Technologist: AGUS [place] [facility] [place]: BP: 135 / 70 HR: 57 Rhythm: Sinus Technical Quality: Adequate MEASUREMENTS (Male / Female) Normal Values 2D ECHO LV Diastolic Diameter PLAX 4.0 cm 4.2 - 5.9 / 3.9 - 5.3 cm IVS Diastolic Thickness 1.3 cm 0.6 - 1.0 / 0.6 - 0.9 cm IVS Systolic Thickness 1.6 cm LVPW Diastolic Thickness 1.3 cm 0.6 - 1.0 / 0.6 - 0.9 cm LVPW Systolic Thickness 1.6 cm LVOT Diameter 2.0 cm LV Ejection Fraction 2D Teich 36.5 % LV Ejection Fraction MOD 2C 45.1 % LV Ejection Fraction 2C AL 45.2 % LA Diameter 3.5 cm RA Systolic Volume 4C AL 21.0 ml RA Systolic Volume 4C MOD 20.4 ml Aorta at Sinotubular Diameter 2.6 cm M-MODE LA Ao Ratio MM 1.1 AV Cusp Separation MM 1.4 cm DOPPLER AV Peak Velocity 316.3 cm/s LVOT Peak Velocity 111.0 cm/s AV Area Cont Eq vti 2.2 cm squared AV Area Cont Eq pk 1.1 cm squared MV Peak Velocity 96.0 cm/s MV Area PHT 3.5 cm squared Mitral E to A Ratio 1.0 TV Peak Velocity 195.0 cm/s TR Peak Velocity 259.0 cm/s TR Peak Gradient 26.8 mmHg TR Mean Velocity 210.0 cm/s TR Mean Gradient 19.3 mmHg TR Velocity Time Integral 89.8 cm TV Peak E Velocity 55.0 cm/s Right Atrial Pressure 3.0 mmHg Pulmonary Artery Systolic Pressu 29.8 mmHg PV Peak Velocity 114.0 cm/s FINDINGS Left Ventricle Left ventricle is normal in size. LV systolic function is normal with EF of 50 to 55%. No regional wall motion abnormalities are seen. Right Ventricle Normal in size and function Right Atrium Normal in size Left Atrium Normal in size Mitral Valve Structurally normal mitral valve. Trace mitral regurgitation. Aortic Valve Structurally normal aortic valve. Mild aortic regurgitation. No significant stenosis. Tricuspid Valve Mild tricuspid regurgitation. Pulmonary artery systolic pressure is normal. Pulmonic Valve Trace pulmonic regurgitation. Pericardium Normal Aorta Normal in size. Echogenic structure seen in ascending aorta. This could be artifact versus plaque. IVC Appears to be normal CONCLUSIONS LV systolic function is normal with EF of 50-55% Trace mitral regurgitation Mild aortic regurgitation Mild tricuspid regurgitation Trace pulmonic regurgitation Echogenic structure seen in ascending aorta. This could be artifact versus plaque. Compared to prior echocardiogram from 2021, no significant changes are seen. On review of images, structure in aorta appears to be seen on prior imaging and is unchanged. May consider CT scan to further assess it. Anam You MD (Electronically Signed) Final Date: 11 August 2023 12:52 S
== END 2023-07-28 13:45 | disposition home or self-care (01) ==
LOC: RAD 13:44
PROVIDERS: PCP Family Medicine; Visit Provider Internal Medicine
DX: R01.1 Cardiac murmur, unspecified (principal); I08.3 Combined rheumatic disorders of mitral, aortic and tricuspid valves
CPT/HCPCS: 93306

== ENCOUNTER → 2023-09-14 09:45 | Outpatient (BNVA) | payer MEDICARE, SELFPAY | PROVIDERS: PCP Family Medicine; Visit Provider Nurse Practitioner Family | DX: I48.0 Paroxysmal atrial fibrillation (principal); Z79.01 Long term (current) use of anticoagulants | CPT/HCPCS: 99213 ==

== ENCOUNTER → 2024-03-02 09:08 | Outpatient (BNVA) | payer MEDICARE, SELFPAY | PROVIDERS: PCP Family Medicine; Visit Provider Nurse Practitioner Family | DX: I48.0 Paroxysmal atrial fibrillation (principal); Z79.01 Long term (current) use of anticoagulants; I10 Essential (primary) hypertension; R07.89 Other chest pain; R60.9 Edema, unspecified | CPT/HCPCS: 99214 ==

== ENCOUNTER 2024-03-22 12:46 | Outpatient (CLI) | payer MEDICARE, SELFPAY ==
--- NOTE | 2024-03-22 12:51 | MM_ITS ---
WS: [id number] Bilateral screening 3D tomosynthesis digital mammogram, 03/22/2024 12:51 PM Clinical Data: SCREENING Comparison: 01/01/2023, 12/28/2021, 09/08/2020, 04/20/2019, 11/22/2017, 07/08/2016, 04/02/2015, 06/06/2013, 1 , 02/06/2010, 12/04/2008, 10/02/2007. Findings: No spiculated masses or clustered calcifications are seen. There are no secondary signs of carcinoma . Mole markers are on both breasts. MM/MM scr BI tomosynthesis [id number] Impression: Negative bilateral mammogram unchanged. Recommend annual screening mammograms. BIRADS: 1 - Negative. FOLLOW UP: 1 Year Follow-up DENSITY: The breasts are almost entirely fatty. The CAD battery checker was used
== END 2024-03-22 12:47 | disposition home or self-care (01) ==
LOC: RAD 12:47
PROVIDERS: PCP Family Medicine; Visit Provider Family Medicine
DX: Z12.31 Encounter for screening mammogram for malignant neoplasm of breast (principal)
CPT/HCPCS: 77063; 77067

== ENCOUNTER → 2024-09-10 11:34 | Outpatient (BNVA) | payer MEDICARE, SELFPAY | PROVIDERS: PCP Family Medicine; Visit Provider Internal Medicine | DX: I48.0 Paroxysmal atrial fibrillation (principal); Z79.01 Long term (current) use of anticoagulants; I10 Essential (primary) hypertension; R55 Syncope and collapse; R06.09 Other forms of dyspnea; R07.9 Chest pain, unspecified | CPT/HCPCS: 99214 ==

== ENCOUNTER 2024-10-23 08:46 | Outpatient (CLI) | payer MEDICARE, SELFPAY ==
[2024-10-23 08:50] VITALS: BMI 26.5
--- NOTE | 2024-10-23 08:51 | NMCV_ITS ---
NM jose luis perf SPECT r/s* [id number] Vale Tripathi Age: 84 Gender: F : 1940 Exam Date: 10/23/2024 09:36 Ordering Phys: Anam You M.D ([email or web address]) Technologist: DAGO Kay Exam [facility]: [facility] Indications: cp STRESS TEST Please [facility] IMAGE PROTOCOL Rest/Stress 1 Lexiscan Day Radiopharmaceutical Dose (mCi) Administration Site Administered by Rest: Tc-99m 10.9 IV DAGO Kay Sestamibi Stress:Tc-99m 32.8 IV Nisha Canela, HEAVY DUTY MECHANIC Sestamibi Rest: 23-Oct-2024 60 Discovery 630 Stress: 23-Oct-2024 30 Discovery 630 0.4mg Lexiscan. Images obtained in supine and prone position. SPECT RESULTS Technical Quality: Good Raw Data Analysis: Normal Image Corrections: No attenuation or motion correction applied Summed Stress Score: 9 Summed Rest Score: 15 Summed Difference Score: 0 PERFUSION FINDINGS Medium to large sized area of reduced radiotracer uptake seen in inferior and inferolateral sexton. This resolves on prone imaging. Likely secondary to attenuation artifact. Less likely to be prior infarct. No evidence of ischemia FUNCTIONAL RESULTS (calculated via Gated SPECT) Stress Image LV EF (%): 77 Stress EDV (mL):92 TID: 1 Stress ESV (mL):21 FUNCTIONAL FINDINGS: There is normal left ventricular systolic function. IMPRESSIONS 1. Medium to large areas of attenuation artifact seen in inferolateral and inferior sexton. No evidence of ischemia. 2. LV systolic function is normal Anam You MD (Electronically Signed) Final Date: 29 October 2024 11:09 S
--- NOTE | 2024-10-23 08:51 | ECG_ITS ---
[facility] [employer] Test Date: 2024-10-23 Pat Name: Vale Tripathi Department: Room: Gender: Female Ui Application Developer: : 1940 Requested By: Anam You Order Number: [id number] Shankar MD: Anam You M.D. Interpretive Statements LEXISCAN SESTAMIBI STRESS TEST Procedure: At the baseline, the blood pressure was 155/69mmHg with a heart rate of 60 bpm. The electrocardiogram showed normal sinus rhythm, normal axis with normal ST and T's. The Lexiscan was infused over a period of 20 seconds. A total of 0.4 mg of Lexiscan was infused. The stress phase was continued for a total of 5 minutes. Heart rate was at the end of stress phase was 76 bpm and a blood pressure of 139/65 mmHg. The EKG at the peak infusion revealed normal sinus rhythm with no significant ST-T wave changes. Sestamibi was injected 20 seconds after the Lexiscan infusion. Blood pressure at the end of recovery phase was 136/64 mmHg with a heart rate of 67 bpm. Conclusion: 1. Normal EKG response to Lexiscan infusion 2. No Lexiscan induced chest pain or cardiac arrhythmia. 3. Normal blood pressure and heart rate response. 4. Sestamibi/sestamibi perfusion scan pending; see separate report. Electronically Signed On 11-08-2024 10:40:51 CDT by Anam You M.D. [email or web address]
[2024-10-23] MEDS: aminophylline 25 mg/mL SDV 20 mL IVP (10:10)
[2024-10-23 10:18] VITALS: BP 136/64; PULSE 64
== END 2024-10-23 08:47 | disposition home or self-care (01) ==
LOC: CDL 08:50
PROVIDERS: PCP Family Medicine; Visit Provider Internal Medicine
DX: R07.9 Chest pain, unspecified (principal); R93.1 Abnormal findings on diagnostic imaging of heart and coronary circulation
CPT/HCPCS: 36415; 78452; 93017; 96374; A9500; J0280

== ENCOUNTER → 2025-04-10 13:28 | Outpatient (BNVA) | payer MEDICARE, SELFPAY | PROVIDERS: PCP Family Medicine; Visit Provider Nurse Practitioner Family | DX: I48.91 Unspecified atrial fibrillation (principal); Z79.01 Long term (current) use of anticoagulants; I10 Essential (primary) hypertension; R07.9 Chest pain, unspecified; R55 Syncope and collapse; R06.09 Other forms of dyspnea; R53.83 Other fatigue | CPT/HCPCS: 93005; 99213 ==

== ENCOUNTER → 2025-05-22 10:36 | Outpatient (BNVA) | payer MEDICARE, SELFPAY | PROVIDERS: PCP Family Medicine; Visit Provider Nurse Practitioner Family | DX: I48.0 Paroxysmal atrial fibrillation (principal); I10 Essential (primary) hypertension; Z79.01 Long term (current) use of anticoagulants; R94.31 Abnormal electrocardiogram [ECG] [EKG] | CPT/HCPCS: 93005; 99214 ==